=== PATIENT | male | born 1940 | race Caucasian/White ===

== ENCOUNTER 2021-07-30 07:27 | Day surgery (SDCO) | payer MEDICARE ==
[~2021-07-30] VITALS: Ht 180.3 cm; Wt 100.7 kg
[2021-07-30 08:09] LABS: BASOPHIL 0.3 % (0-2); EOSINOPHIL 0.9 % (0-7); HCT 43.2 % (42.0-52.0); HGB 14.2 g/dl (13.2-18.0); LYMPHOCYTE 13.8 % (15-48); MCH 30.5 pg (25.0-31.0); MCHC 32.9 g/dL (32.0-36.0); MCV 92.7 fL (78.0-100.0); MONOCYTE 10.6 % (0-12); MPV 9.3 fL (6.0-9.5); NEUTROPHIL 73.2 % (41-80); NRBC 0; PLT 188 K/uL (150-400); RBC 4.66 M/uL (4.70-6.00); RDW 13.2 % (11.5-14.0); WBC 7.7 K/uL (4.0-10.5)
[2021-07-30 08:22] LABS: BUN/CREAT RATIO (CALC) 13.5 RATIO; CREATININE 1.04 mg/dL (0.67-1.17); POTASSIUM 4.1 mmol/L (3.5-5.1)
[2021-07-30 08:53] LABS: CORONAVIRUS 2019 SARS-COV-2 POSITIVE (NEGATIVE); INFLUENZA A NAA NEGATIVE (NEGATIVE)
[2021-07-30] MEDS ORDERED: PROTONIX 40MG T40 MG PO (12:12)
[2021-07-30] MEDS ORDERED: PROZAC20 MG PO (12:12)
[2021-07-30] MEDS ORDERED: FLOMAX 0.4 MG0.4 MG PO (12:12)
[2021-07-30] MEDS ORDERED: CELEBREX **OUT100 MG PO (12:12)
[2021-07-30] MEDS ORDERED: DIAZEPAM 5MG TAB5 MG PO (12:13)
[2021-07-30] MEDS ORDERED: LIPITOR20 MG PO (12:13)
[2021-07-30] MEDS ORDERED: PRINIVIL10 MG PO (12:13)
[2021-07-30] MEDS ORDERED: METFORMIN HCL500 MG PO (12:13)
[2021-07-31 07:14] LABS: BASOPHIL 0.3 % (0-2); EOSINOPHIL 0 % (0-7); HCT 40.8 % (42.0-52.0); HGB 13.6 g/dl (13.2-18.0); LYMPHOCYTE 16.9 % (15-48); MCH 30.8 pg (25.0-31.0); MCHC 33.3 g/dL (32.0-36.0); MCV 92.3 fL (78.0-100.0); MONOCYTE 12.8 % (0-12); MPV 9.5 fL (6.0-9.5); NEUTROPHIL 68.7 % (41-80); NRBC 0; PLT 201 K/uL (150-400); RBC 4.42 M/uL (4.70-6.00); RDW 13.1 % (11.5-14.0); WBC 6.1 K/uL (4.0-10.5)
[2021-07-31 07:36] LABS: BUN/CREAT RATIO (CALC) 19.6 RATIO; CREATININE 0.97 mg/dL (0.67-1.17); POTASSIUM 4.3 mmol/L (3.5-5.1)
[2021-08-02] MEDS ORDERED: MEDROL 4MG DOSEP4 MG PO (07:33)
[2021-08-02] MEDS ORDERED: ATROVENT HFA12.9 GM INH (08:21)
[2021-08-02] MEDS ORDERED: ALBUTEROL HFA INH (08:21)
== END 2021-08-02 10:47 | disposition home or self-care (01) ==
LOC: FER 07:27 → FMS 16:35
PROVIDERS: Internal Medicine; ADMIT Family Medicine
DX: U07.1 COVID-19 (principal); J12.82 Pneumonia due to coronavirus disease 2019; J96.01 Acute respiratory failure with hypoxia; E11.65 Type 2 diabetes mellitus with hyperglycemia; I10 Essential (primary) hypertension; N40.0 Benign prostatic hyperplasia without lower urinary tract symptoms; Z79.4 Long term (current) use of insulin; Z79.899 Other long term (current) drug therapy
CPT/HCPCS: 36415; 36600; 71045; 80048; 82803; 82962; 83880; 84145; 85025; 94010; 94640; 94667; 94668; 94760; 97162; 97166; 97530; 97530-GP; C9113; C9399; G0378; J1100; J1650; J7050; J8540; U0002